=== PATIENT | female | born 1945 | race Caucasian/White ===

== ENCOUNTER 2017-09-15 09:11 | Outpatient (CLI) | payer MEDICARE ==
--- NOTE | 2017-09-15 11:22 | MMO ---
BILATERAL MAMMOGRAMS: DATE: 09/15/17 HISTORY: Screening mammography. COMPARISON: Multiple exams back to 04/25/11. FINDINGS: Heterogeneously dense fibroglandular tissue and benign-appearing calcifications. Focal asymmetries wi thin each breast are stable. No new dominant mass or suspicious calcifications. The study was evaluated with the assistance of computer-aided detection. IMPRESSION: BIRADS 2: Benign Finding(s) Suggest routine follow-up. POS: [id number]
== END 2017-09-15 09:12 | disposition home or self-care (01) ==
LOC: SCSMAMMO 09:11
PROVIDERS: ATTEND Obstetrics & Gynecology
DX: Z12.31 Encounter for screening mammogram for malignant neoplasm of breast (principal)
CPT/HCPCS: 77067

== ENCOUNTER 2018-12-06 08:50 | Outpatient (CLI) | payer MEDICARE ==
--- NOTE | 2018-12-06 09:41 | ULT ---
ABDOMINAL ULTRASOUND HISTORY: Elevated alkaline phosphatase. Hepatitis. FINDINGS: Liver: Within normal limits. Gallbladder: No gallbladder calculi are visualized. There is no gallbladder wall thickening or perich olecystic fluid. Common duct: Common duct is normal in caliber measuring 4 mm in diameter. Pancreas: The limited visualized pancreas demonstrates a normal sonographic appearance. IVC: Limited visualized IVC has a normal sonographic appearance. Aorta: Mild atherosclerotic plaque and calcifications. Spleen: Within normal limits. Kidneys: The left kidney demonstrates a normal sonographic appearance and measures 9 cm in length. The left kidney measures 10 cm in length, and there is a large 9.8 cm anechoic structure seen involvi ng the left kidney most compatible with a large left renal cyst occupying the inferior pole and midportion left kidney. IMPRESSION: 1. Large left renal cyst. 2. No gallbladder calculus is seen, and the common duct is normal in caliber. 3. Normal sonographic appearance of the liver without focal mass seen.
== END 2018-12-06 08:51 | disposition home or self-care (01) ==
LOC: BICULT 08:50
PROVIDERS: ATTEND Family Medicine
DX: R74.8 Abnormal levels of other serum enzymes (principal); N28.1 Cyst of kidney, acquired; Z86.19 Personal history of other infectious and parasitic diseases
CPT/HCPCS: 93975

== ENCOUNTER 2022-01-10 07:00 | Outpatient (CLI) | payer MEDICARE | END 2022-01-10 07:01 | disposition home or self-care (01) | LOC: BICULT 07:00 | PROVIDERS: ATTEND Family Medicine | DX: R74.8 Abnormal levels of other serum enzymes (principal); K31.89 Other diseases of stomach and duodenum | CPT/HCPCS: 76700 ==

== ENCOUNTER 2023-11-07 09:50 | Outpatient (CLI) | payer MEDICARE | END 2023-11-07 09:51 | disposition home or self-care (01) | LOC: BICULT 09:50 | PROVIDERS: ATTEND Family Medicine | DX: R74.8 Abnormal levels of other serum enzymes (principal) | CPT/HCPCS: 76700 ==